=== PATIENT | female | born 1945 | race Caucasian/White ===

== ENCOUNTER 2016-11-22 22:56 | Inpatient (IN) | payer OTHER, MEDICAID ==
[~2016-11-22] VITALS: Ht 160 cm; Wt 82.8 kg
[~2016-11-22 22:56] MED LIST: AMARYL4 MG; ATI1 PO; NAPROSYN500 MG; TEN25 PO; TYLENOL EXTRA500 M3; ZES10 PO
[2016-11-23 02:14] LABS: CALCIUM 8.4 mg/dL (8.5-10.1); CARBON DIOXIDE 29.3 mmol/L (21-32); CHLORIDE SERUM 107 mmol/L (98-107); CREATININE SERUM 0.9 mg/dL (0.6-1.0); GLUCOSE SERUM 165 mg/dL (74-106); POTASSIUM SERUM 4.5 mmol/L (3.5-5.1); SODIUM SERUM 140 mmol/L (136-145)
[2016-11-23 02:19] LABS: ALBUMIN 3.5 g/dL (3.4-5.0); ALKALINE PHOSPHATASE 51 U/L (46-116); ALT/SGPT 23 U/L (14-59); AST/SGOT 20 U/L (15-37); TOTAL PROTEIN, SERUM 6.6 g/dL (6.4-8.2)
[2016-11-23 02:21] LABS: BASOPHIL % 0.6 % (0-2); PLATELET COUNT 178 x10^3mcL (130-400)
[2016-11-23 02:22] LABS: RED CELL DISTRIBUTION WIDTH 15.2 % (11.5-14.5)
[2016-11-23 02:30] LABS: microscopic required? NO
[2016-11-23 02:36] LABS: UA SPECIFIC GRAVITY <=1.005 (1.005-1.035); urine erythrocyte NEGATIVE (NEGATIVE)
[2016-11-23 04:52] VITALS: BP 133/53
[2016-11-23 05:09] LABS: T3 TOTAL 0.77 ng/mL
[2016-11-23 05:17] LABS: FREE T4 0.88 ng/dL (0.76-1.46); FREE THYROXINE INDEX 2.4 ug/dL (1.4-4.5); T4(THYROXINE) 7.1 ug/dL (4.7-13.3)
[2016-11-23 05:18] VITALS: BP 133/53
[2016-11-23 07:06] LABS: AMPHETAMINE QUAL UR NONE DETECTED (NEG <=1000)
[2016-11-23 09:40] VITALS: BP 143/49
[2016-11-23 13:42] VITALS: BP 119/57
[2016-11-23 17:31] VITALS: BP 125/61
[2016-11-23 21:28] VITALS: BP 125/53
[2016-11-24 06:00] VITALS: BP 137/60
[2016-11-24 08:35] VITALS: BP 126/67
[2016-11-24] MEDS ORDERED: MECLIZINE HCL12.5 MG PO (10:13)
[2016-11-24] MEDS ORDERED: LIPI20 PO (10:13)
[2016-11-24 10:41] VITALS: BP 126/67
== END 2016-11-24 12:53 | disposition home or self-care (01) | DRG 640 ==
LOC: ED 22:56 → DU 11-23 03:58 → MU 11-23 03:58 → DU 11-23 04:11 → MU 11-24 06:53
PROVIDERS: Emergency Medicine; ADMIT Family Medicine
DX: E86.0 Dehydration (principal); N17.0 Acute kidney failure with tubular necrosis; D68.69 Other thrombophilia; E11.65 Type 2 diabetes mellitus with hyperglycemia; E83.51 Hypocalcemia; F41.1 Generalized anxiety disorder; E78.5 Hyperlipidemia, unspecified; I10 Essential (primary) hypertension; E66.9 Obesity, unspecified; Z68.32 Body mass index [BMI] 32.0-32.9, adult; Z79.84 Long term (current) use of oral hypoglycemic drugs
CPT/HCPCS: 82962; 83880; 84439; J7030; J8597; Q0092